=== PATIENT | female | born 1940 | race Hispanic/Latino ===

== ENCOUNTER 2024-02-21 09:20 | Inpatient (IN) | payer OTHER ==
[2024-02-21 10:50] LABS: #Basophils 0.05 10x3/uL (0.0-0.2); %Basophils 0.5 % (0.0-1.0); %Eosinophils 0.7 % (0.0-10.0); %Monocytes 4.4 % (0.0-10.0); %Neutrophils 86.9 % (42.0-75.0); Hematocrit 35.5 % (36.0-47.0); Hemoglobin 11.4 g/dL (12.0-16.0); Mean Corpuscular HGB CONC 32.1 g/dL (32.0-36.0); Mean Corpuscular Hemoglobin 32.3 pg (27.0-31.0); Mean Corpuscular Volume 100.6 fL (78.0-98.0); Mean Platelet Volume 10.9 fL (7.4-10.4); Platelet Count 168 10x3/uL (130-400); RBC Distribution Width 13.2 % (11.5-14.5); Red Blood Cell (RBC) Count 3.53 mill/uL (4.20-5.40)
[2024-02-21 11:11] LABS: ALT (SGPT) 12 U/L (8-55); AST (SGOT) 16 U/L (5-34); Albumin 3.4 g/dL (3.4-4.8); Alkaline Phosphatase 92 U/L (40-110); Anion Gap 10 mmol/L (10-20); BUN (Urea Nitrogen) 15 mg/dL (9.8-20.1); Bilirubin, Total 0.4 mg/dL (0.2-1.2); Calc. Creatinine Clearance 0 mL/min (70-130); Carbon Dioxide 19 mmol/L (23-31); Chloride 112 mmol/L (98-107); Estimated GFR 38; Globulin 2.7 g/dL (2.4-3.5); Glucose 194 mg/dL (83-110); Lipase 36 U/L (8-78); Potassium 4.8 mmol/L (3.5-5.1); Protein, Total 6.1 g/dL (5.8-8.1); Sodium 136 mmol/L (136-145)
[2024-02-21] MEDS ORDERED: Aspirin Chewable 81 MG TAB ONE (11:11)
[2024-02-21 11:20] LABS: Troponin I 0.015 ng/mL (< 0.028)
[2024-02-21] MEDS ORDERED: Dextrose 5% in Water 1,000 ML IV PRN (14:12)
[2024-02-21] MEDS ORDERED: Dextrose 50% Abboject 50 ML SYRINGE SLOW IVP PRN (14:12)
[2024-02-21] MEDS ORDERED: Insulin Lispro 100 UNIT/ML 10 ML VIAL SC PRN (14:12)
[2024-02-21] MEDS ORDERED: Glucagon 1 MG/ML KIT IM PRN (14:12)
[2024-02-21] MEDS ORDERED: Iopamidol-370 76% 500 ML MDV (1 ML CHARGE) ONE (15:08)
[2024-02-21 15:22] LABS: Troponin I 0.024 ng/mL (< 0.028)
[2024-02-21 15:35] LABS: INR-International Normal Ratio 1.1; PTT 28.1 sec (22.9-36.1); Prothrombin Time 13.8 sec (12.0-14.7)
[2024-02-21 17:29] LABS: Troponin I 0.016 ng/mL (< 0.028)
[2024-02-21 18:11] VITALS: BMI 21.9
[2024-02-21] MEDS: Atorvastatin Calcium 40 MG TAB PO SCH (20:33)
[2024-02-21] MEDS: Lactated Ringer's 1,000 ML IV SCH (20:35)
[2024-02-21] MEDS ORDERED: Pantoprazole 40 MG VIAL IVP SCH (21:00)
[2024-02-22 03:44] LABS: #Basophils 0.04 10x3/uL (0.0-0.2); %Basophils 0.7 % (0.0-1.0); %Eosinophils 1.9 % (0.0-10.0); %Lymphocytes 24.7 % (21.0-51.0); %Monocytes 8.3 % (0.0-10.0); %Neutrophils 64.2 % (42.0-75.0); Hematocrit 32.1 % (36.0-47.0); Hemoglobin 10.5 g/dL (12.0-16.0); Mean Corpuscular HGB CONC 32.7 g/dL (32.0-36.0); Mean Corpuscular Hemoglobin 32.7 pg (27.0-31.0); Platelet Count 157 10x3/uL (130-400); RBC Distribution Width 13.2 % (11.5-14.5); Red Blood Cell (RBC) Count 3.21 mill/uL (4.20-5.40)
[2024-02-22 03:54] LABS: Hemoglobin A1c 6.4 % (4.0-6.0)
[2024-02-22 04:06] LABS: ALT (SGPT) 10 U/L (8-55); AST (SGOT) 16 U/L (5-34); Albumin 3.1 g/dL (3.4-4.8); Alkaline Phosphatase 81 U/L (40-110); Anion Gap 9 mmol/L (10-20); BUN (Urea Nitrogen) 15 mg/dL (9.8-20.1); Bilirubin, Direct 0.1 mg/dL (0.1-0.3); Bilirubin, Total 0.4 mg/dL (0.2-1.2); Calc. Creatinine Clearance 22 mL/min (70-130); Carbon Dioxide 21 mmol/L (23-31); Chloride 114 mmol/L (98-107); Estimated GFR 42; Glucose 89 mg/dL (83-110); Potassium 4.7 mmol/L (3.5-5.1); Protein, Total 5.7 g/dL (5.8-8.1); Sodium 139 mmol/L (136-145)
[2024-02-22] MEDS: Aspirin Chewable 81 MG TAB PO SCH (10:06)
[2024-02-22] MEDS: Pantoprazole 40 MG DR.TAB PO SCH (10:06)
[2024-02-22] MEDS ORDERED: Regadenoson 0.4 MG/5 ML SYRINGE ONE (11:58)
[2024-02-22] MEDS: Amlodipine 5 MG TAB PO SCH (15:08)
[2024-02-22] MEDS: Insulin Lispro 100 UNIT/ML 10 ML VIAL SC PRN (20:36)
[2024-02-23 04:50] LABS: #Basophils 0.03 10x3/uL (0.0-0.2); %Basophils 0.5 % (0.0-1.0); %Eosinophils 2.1 % (0.0-10.0); %Lymphocytes 17.4 % (21.0-51.0); %Monocytes 9.3 % (0.0-10.0); %Neutrophils 70.5 % (42.0-75.0); Hematocrit 33.3 % (36.0-47.0); Hemoglobin 11.4 g/dL (12.0-16.0); Mean Corpuscular HGB CONC 34.2 g/dL (32.0-36.0); Mean Corpuscular Hemoglobin 33.2 pg (27.0-31.0); Mean Corpuscular Volume 97.1 fL (78.0-98.0); Mean Platelet Volume 11.6 fL (7.4-10.4); Platelet Count 164 10x3/uL (130-400); RBC Distribution Width 12.9 % (11.5-14.5); Red Blood Cell (RBC) Count 3.43 mill/uL (4.20-5.40)
[2024-02-23 05:05] LABS: Anion Gap 11 mmol/L (10-20); BUN (Urea Nitrogen) 17 mg/dL (9.8-20.1); Calc. Creatinine Clearance 22 mL/min (70-130); Calcium 8.1 mg/dL (7.8-10.44); Carbon Dioxide 19 mmol/L (23-31); Chloride 113 mmol/L (98-107); Estimated GFR 41; Glucose 90 mg/dL (83-110); Magnesium 2.1 mg/dL (1.6-2.6); Potassium 3.7 mmol/L (3.5-5.1); Sodium 139 mmol/L (136-145)
[2024-02-23] MEDS: Amlodipine 5 MG TAB PO SCH (09:21)
[2024-02-23 11:42] VITALS: TEMP 98.1
[2024-02-23 13:07] VITALS: BP 148/66
== END 2024-02-23 13:45 | disposition home or self-care (01) | DRG 313 ==
LOC: ERS 09:20 → SUATTDRO 09:20 → 2NO 16:26 → OBSVTOIN 02-22 13:23
PROVIDERS: ADMIT Family Medicine; ATTEND Family Medicine
DX: R07.89 Other chest pain (principal); N17.9 Acute kidney failure, unspecified; R00.1 Bradycardia, unspecified; I44.0 Atrioventricular block, first degree; I12.9 Hypertensive chronic kidney disease with stage 1 through stage 4 chronic kidney disease, or unspecified chronic kidney disease; E11.22 Type 2 diabetes mellitus with diabetic chronic kidney disease; Z79.899 Other long term (current) drug therapy; Z79.84 Long term (current) use of oral hypoglycemic drugs; Z79.82 Long term (current) use of aspirin
CPT/HCPCS: 36415; 36416; 71045; 74177; 78452; 80048; 80053; 80076; 83036; 83690; 83735; 84443; 84484; 85025; 85610; 85730; 86850; 86900; 86901; 93005; 93017; 93306; A9502; G0378; J1815; J2785; J7120; Q9967